=== PATIENT | male | born 1945 | race Caucasian/White ===

== ENCOUNTER 2022-06-23 05:52 | Observation (INO) | payer MEDICARE ==
[2022-06-23] MEDS ORDERED: Digoxin 0.5 MG/2 ML AMP ONE (06:06)
[2022-06-23] MEDS ORDERED: Amiodarone 150 MG/3 ML VIAL ONE (06:13)
[2022-06-23 06:21] LABS: #Basophils 0.1 10x3/uL (0.0-0.2); #Eosinphils 0.4 10x3/uL (0.0-0.5); #Neutrophils 6.8 10x3/uL (1.5-8.4); %Basophils 0.5 % (0.0-2.0); %Eosinophils 3.6 % (0.0-6.0); %Lymphocytes 14.6 % (18.0-47.0); %Monocytes 9.9 % (0.0-10.0); %Neutrophils 70.6 % (40.0-75.0); Hemoglobin 13.5 g/dL (13.5-17.5); Mean Corpuscular HGB CONC 34.3 g/dL (32.0-36.0); Mean Corpuscular Volume 90.4 fl (81.2-95.1); Mean Platelet Volume 11.2 fl (7.4-10.4); Platelet Count 261 10x3/uL (150-450); RBC Distribution Width 13.1 % (11.5-14.5); Red Blood Cell (RBC) Count 4.36 10x6/uL (4.32-5.72); White Blood Cell (WBC) Count 9.6 10x3/uL (3.5-10.5)
[2022-06-23 06:43] LABS: ALT (SGPT) 98 U/L (8-55); AST (SGOT) 30 U/L (5-34); Albumin 3.2 g/dL (3.4-4.8); Alkaline Phosphatase 143 U/L (40-110); Anion Gap 16 mmol/L (10-20); BUN (Urea Nitrogen) 14 mg/dL (8.4-25.7); Bilirubin, Total 1.6 mg/dL (0.2-1.2); CK (CPK) 19 U/L (30-200); Calc. Creatinine Clearance 0 mL/min (70-130); Calcium 8.6 mg/dL (7.8-10.44); Carbon Dioxide 25 mmol/L (23-31); Chloride 99 mmol/L (98-107); Estimated GFR 75; Globulin 2.4 g/dL (2.4-3.5); Glucose 95 mg/dL (83-110); Potassium 4.2 mmol/L (3.5-5.1); Protein, Total 5.6 g/dL (5.8-8.1); Sodium 136 mmol/L (136-145)
[2022-06-23] MEDS ORDERED: Enoxaparin Sodium 40 MG/0.4 ML SYRINGE SC SCH (09:00)
[2022-06-23 09:44] VITALS: BMI 21.6
[2022-06-23 09:57] LABS: Magnesium 1.9 mg/dL (1.6-2.6)
[2022-06-23 10:03] LABS: Troponin I 0.013 ng/mL (< 0.028)
[2022-06-23] MEDS ORDERED: FLU VACC QS2022-23(65YR UP)/PF 240 MCG/0.7 ML SYRINGE IM ONE (10:15)
[2022-06-23 11:28] VITALS: BP 115/66; TEMP 97.9
[2022-06-23 12:24] LABS: Troponin I 0.034 ng/mL (< 0.028)
== END 2022-06-23 13:31 | disposition home or self-care (01) ==
LOC: CSHERS 05:52 → INTOOBSV 09:28 → CSHTELE 09:28
PROVIDERS: ADMIT Internal Medicine; ATTEND Internal Medicine
DX: I48.91 Unspecified atrial fibrillation (principal); R00.2 Palpitations; K21.9 Gastro-esophageal reflux disease without esophagitis; N40.0 Benign prostatic hyperplasia without lower urinary tract symptoms; Z79.82 Long term (current) use of aspirin; Z20.822 Contact with and (suspected) exposure to COVID-19; Z79.899 Other long term (current) drug therapy; Z90.49 Acquired absence of other specified parts of digestive tract
CPT/HCPCS: 71045; 82550; 83735; 84484 ×2; 93005; 96374; 96375; 99285; U0003; U0005; 36415; 80053; 84443; 85025; J0282; J1160; J1650